=== PATIENT | female | born 1960 | race Caucasian/White ===

== ENCOUNTER → 2022-04-08 15:55 | Outpatient (CLI) | payer OTHER, SELFPAY ==
[2022-04-08 19:09] LABS: Basophils % 0.6 % (0.1-2.0); Eosinophils # 0.2 K/mm3 (0.0-0.4); Eosinophils % 2.3 % (0.1-12.0); Hematocrit 39.2 % (37.0-47.0); Lymphocytes # 2.2 K/mm3 (0.7-4.5); Lymphocytes % 34.5 % (10-50); Mean Corpuscular HGB Conc 33.2 g/dL (31.8-35.4); Mean Corpuscular Hemoglobin 32.6 pg (27.0-31.2); Mean Corpuscular Volume 98.2 fl (81-99); Mean Platelet Volume 8.9 fl (7.4-10.4); Monocytes # 0.5 K/mm3 (0.1-1.0); Monocytes % 8.5 % (1.7-9.3); Neutrophils # 3.5 K/mm3 (1.8-7.8); Neutrophils % 54.1 % (37.0-80.0); Platelet Count 129 K/mm3 (142-424); Red Cell Distribution Width 13.4 % (11.5-17.5); White Blood Count 6.4 K/mm3 (4.8-10.8)
[2022-04-08 19:55] LABS: Microalbumin < 6.000 mg/L (0-16.7)
[2022-04-08 19:59] LABS: Creatinine,Urine Random 18 mg/dL (Not Estab.); Microalbumin/Creatinine Ratio 33.3
[2022-04-08 21:12] LABS: Alanine Aminotransferase 42 U/L (12-78); Albumin Level 4.6 g/dl (3.5-5.0); Albumin/Globulin Ratio 1.5 (1.1-1.8); Alkaline Phosphatase 277 U/L (38-126); Anion Gap 13.9 mEq/L (5-15); Aspartate Amino Transferase 51 U/L (14-36); Bilirubin,Total 0.7 mg/dl (0.2-1.3); Blood Urea Nitrogen 30 mg/dl (7-17); Calcium 10.6 mg/dl (8.4-10.2); Carbon Dioxide 27 mmol/L (22.0-30.0); Chloride 103 mmol/L (98-107); Chol/HDL Ratio 2.9 (1-3.5); Cholesterol 206 mg/dl (140-200); Estimated Glomerular Filt Rate 56 ml/min (>60); GFR (African American) 68 ML/MIN (>60); Globulin 3.1 g/dL (1.3-3.2); Glucose 108 mg/dl (74-100); HDL Cholesterol 71 mg/dl (40-60); Potassium 3.9 mmoL/L (3.5-5.1); Sodium 140 mmol/L (136-145); Total Protein,Serum 7.7 g/dl (6.3-8.2); Triglycerides 180 mg/dl (30-150); VLDL Cholesterol 36 mg/dL (0-40)
[2022-04-08 21:23] LABS: Direct LDL Cholesterol 84.18 mg/dL (100-129)
[2022-04-08 21:43] LABS: Thyroid Stimulating Hormone 0.98 uIU/mL (0.465-4.68)
== END ==
PROVIDERS: PCP Family Medicine; Visit Provider Family Medicine
DX: E11.9 Type 2 diabetes mellitus without complications (principal); E78.5 Hyperlipidemia, unspecified; I10 Essential (primary) hypertension; Z79.84 Long term (current) use of oral hypoglycemic drugs
CPT/HCPCS: 80053; 80061; 82043; 82570; 84443; 85025

== ENCOUNTER → 2022-07-17 19:04 | Outpatient (CLI) | payer OTHER, SELFPAY ==
[2022-07-17 19:41] LABS: Alanine Aminotransferase 53 U/L (12-78); Albumin Level 4.4 g/dl (3.5-5.0); Albumin/Globulin Ratio 1.5 (1.1-1.8); Alkaline Phosphatase 215 U/L (38-126); Anion Gap 12.3 mEq/L (5-15); Aspartate Amino Transferase 66 U/L (14-36); Bilirubin,Total 0.9 mg/dl (0.2-1.3); Blood Urea Nitrogen 24 mg/dl (7-17); Calcium 9.4 mg/dl (8.4-10.2); Carbon Dioxide 23 mmol/L (22.0-30.0); Chloride 107 mmol/L (98-107); Chol/HDL Ratio 2.5 (1-3.5); Cholesterol 178 mg/dl (140-200); Estimated Glomerular Filt Rate 64 ml/min (>60); GFR (African American) 77 ML/MIN (>60); Globulin 2.9 g/dL (1.3-3.2); Glucose 182 mg/dl (74-100); HDL Cholesterol 71 mg/dl (40-60); Potassium 4.3 mmoL/L (3.5-5.1); Sodium 138 mmol/L (136-145); Total Protein,Serum 7.3 g/dl (6.3-8.2); Triglycerides 119 mg/dl (30-150); VLDL Cholesterol 24 mg/dL (0-40)
[2022-07-17 19:53] LABS: Direct LDL Cholesterol 81.52 mg/dL (100-129)
[2022-07-17 20:12] LABS: Thyroid Stimulating Hormone 1.16 uIU/mL (0.465-4.68)
[2022-07-17 21:41] LABS: Hemoglobin A1C 6.8 % (4.0-6.0)
== END ==
PROVIDERS: PCP Family Medicine; Visit Provider Family Medicine
DX: E11.9 Type 2 diabetes mellitus without complications (principal); E78.5 Hyperlipidemia, unspecified; I10 Essential (primary) hypertension; Z79.84 Long term (current) use of oral hypoglycemic drugs
CPT/HCPCS: 80053; 80061; 83036; 84443

== ENCOUNTER → 2022-10-07 16:00 | Outpatient (CLI) | payer OTHER, SELFPAY ==
[2022-10-07 19:41] LABS: Alanine Aminotransferase 36 U/L (12-78); Albumin Level 4.2 g/dl (3.5-5.0); Albumin/Globulin Ratio 1.3 (1.1-1.8); Alkaline Phosphatase 192 U/L (38-126); Anion Gap 18.1 mEq/L (5-15); Aspartate Amino Transferase 51 U/L (14-36); Bilirubin,Total 0.7 mg/dl (0.2-1.3); Blood Urea Nitrogen 25 mg/dl (7-17); Calcium 9.7 mg/dl (8.4-10.2); Carbon Dioxide 23 mmol/L (22.0-30.0); Chloride 104 mmol/L (98-107); Estimated Glomerular Filt Rate 73 ml/min (>60); GFR (African American) 88 ML/MIN (>60); Globulin 3.2 g/dL (1.3-3.2); Glucose 118 mg/dl (74-100); Potassium 4.1 mmoL/L (3.5-5.1); Sodium 141 mmol/L (136-145); Total Protein,Serum 7.4 g/dl (6.3-8.2)
== END ==
PROVIDERS: PCP Family Medicine; Visit Provider Family Medicine
DX: E11.9 Type 2 diabetes mellitus without complications (principal); I10 Essential (primary) hypertension; R74.8 Abnormal levels of other serum enzymes; Z79.84 Long term (current) use of oral hypoglycemic drugs
CPT/HCPCS: 80053

== ENCOUNTER → 2023-04-07 23:21 | Outpatient (CLI) | payer OTHER, SELFPAY ==
[2023-04-07 18:12] LABS: Amphetamine/Metha Screen,Urine Negative ng/ml (<1000); Barbiturates Screen,Urine Negative ng/ml (<200)
[2023-04-07 18:13] LABS: Benzodiazepines Screen,Urine Negative ng/ml (<200)
[2023-04-07 18:14] LABS: Cocaine Screen,Urine Negative ng/ml (<300); Methadone Screen,Urine Negative ng/ml (<300)
[2023-04-07 18:15] LABS: Cannabinoid Screen,Urine Negative ng/ml (<50); Opiate Screen,Urine Negative ng/ml (<300)
[2023-04-07 18:24] LABS: Phencyclidine Screen,Urine Negative ng/ml (<25)
== END ==
PROVIDERS: PCP Family Medicine; Visit Provider Family Medicine
DX: Z79.899 Other long term (current) drug therapy (principal)
CPT/HCPCS: 80305

== ENCOUNTER 2023-07-19 19:28 | Outpatient (CLI) | payer BC, SELFPAY ==
[2023-07-19 19:10] LABS: Basophils % 0.7 % (0.1-2.0); Eosinophils # 0.1 K/mm3 (0.0-0.4); Eosinophils % 1.5 % (0.1-12.0); Hemoglobin 13.3 g/dL (12.2-16.2); Lymphocytes # 1.2 K/mm3 (0.7-4.5); Lymphocytes % 23.3 % (10-50); Mean Corpuscular HGB Conc 31.7 g/dL (31.8-35.4); Mean Corpuscular Hemoglobin 31.4 pg (27.0-31.2); Mean Platelet Volume 10.3 fl (7.4-10.4); Monocytes # 0.4 K/mm3 (0.1-1.0); Monocytes % 6.8 % (1.7-9.3); Neutrophils # 3.6 K/mm3 (1.8-7.8); Neutrophils % 67.8 % (37.0-80.0); Platelet Count 128 K/mm3 (142-424); Red Blood Count 4.24 M/mm3 (4.20-5.40); Red Cell Distribution Width 14.4 % (11.5-17.5); White Blood Count 5.3 K/mm3 (4.8-10.8)
[2023-07-19 19:53] LABS: Hemoglobin A1C 7.3 % (4.0-6.0)
[2023-07-19 21:25] LABS: Chloride 110 mmol/L (98-107)
[2023-07-19 21:26] LABS: Potassium 4.8 mmoL/L (3.5-5.1); Sodium 141 mmol/L (136-145)
[2023-07-19 21:28] LABS: Alanine Aminotransferase 48 U/L (12-78); Alkaline Phosphatase 320 U/L (38-126); Anion Gap 13.8 mEq/L (5-15); Aspartate Amino Transferase 59 U/L (14-36); Bilirubin,Total 0.8 mg/dl (0.2-1.3); Blood Urea Nitrogen 26 mg/dl (7-17); Carbon Dioxide 22 mmol/L (22.0-30.0); Estimated Glomerular Filt Rate 56 ml/min (>60); GFR (African American) 68 ML/MIN (>60)
[2023-07-19 21:29] LABS: Albumin/Globulin Ratio 1.3 (1.1-1.8); Chol/HDL Ratio 3.9 (1-3.5); Cholesterol 192 mg/dl (140-200); Glucose 208 mg/dl (74-100); HDL Cholesterol 49 mg/dl (40-60); Triglycerides 182 mg/dl (30-150); VLDL Cholesterol 36 mg/dL (0-40)
[2023-07-19 21:40] LABS: Direct LDL Cholesterol 89.33 mg/dL (100-129)
== END 2023-07-19 23:59 ==
LOC: LAB.DROPOF 19:28
PROVIDERS: PCP Family Medicine; Visit Provider Family Medicine
DX: E11.9 Type 2 diabetes mellitus without complications (principal); E78.5 Hyperlipidemia, unspecified; Z79.84 Long term (current) use of oral hypoglycemic drugs
CPT/HCPCS: 80053; 80061; 83036; 85025

== ENCOUNTER 2024-01-17 16:50 | Outpatient (CLI) | payer BC, SELFPAY ==
[2024-01-17 18:52] LABS: Creatinine,Urine Random 50 mg/dL (Not Estab.); Microalbumin < 6.000 mg/L (0-16.7)
== END 2024-01-17 23:59 | disposition home or self-care (01) ==
LOC: LAB.DROPOF 01-18 11:00
PROVIDERS: PCP Family Medicine; Visit Provider Family Medicine
DX: E11.9 Type 2 diabetes mellitus without complications (principal); Z79.84 Long term (current) use of oral hypoglycemic drugs
CPT/HCPCS: 82043; 82570

== ENCOUNTER 2024-12-26 10:00 | Outpatient (CLI) | payer BC, SELFPAY ==
[2024-12-26 15:19] LABS: Hematocrit 32.3 % (37.0-47.0); Hemoglobin 10.0 g/dL (12.2-16.2); Immature Granulocytes % 0.6 %; Mean Corpuscular HGB Conc 31.0 g/dL (31.8-35.4); Mean Corpuscular Hemoglobin 27.4 pg (27.0-31.2); Mean Corpuscular Volume 88.5 fl (81-99); Nucleated Red Blood Cells % 0 %; Platelet Count 166 K/mm3 (142-424); Red Blood Count 3.65 M/mm3 (4.20-5.40); Red Cell Distribution Width-SD 49.8 fL; White Blood Count 4.8 K/mm3 (4.8-10.8)
[2024-12-26 16:13] LABS: Alanine Aminotransferase 9 U/L (12-78); Albumin Level 3.4 g/dl (3.5-5.0); Albumin/Globulin Ratio 1.1 (1.1-1.8); Alkaline Phosphatase 311 U/L (38-126); Anion Gap 12.5 mEq/L (5-15); Aspartate Amino Transferase 50 U/L (14-36); Bilirubin,Total 1.2 mg/dl (0.2-1.3); Blood Urea Nitrogen 26 mg/dl (7-17); Calcium 8.6 mg/dl (8.4-10.2); Carbon Dioxide 30 mmol/L (22.0-30.0); Chloride 94 mmol/L (98-107); Creatinine,Serum 1.10 mg/dl (0.52-1.04); Estimated Glomerular Filt Rate 50 ml/min (>60); GFR (African American) 61 ML/MIN (>60); Globulin 3.1 g/dL (1.3-3.2); Glucose 136 mg/dl (74-100); Potassium 3.5 mmoL/L (3.5-5.1); Sodium 133 mmol/L (136-145); Total Protein,Serum 6.5 g/dl (6.3-8.2)
--- OUTSIDE RECORDS SUMMARY | 2025-02-17 20:00 | XMS_ITS | Clinical Summary ---
Author Organization [facility] ([facility]) Address [address] [address] Phone Care Team Providers Care Debt Counselor Name Role Phone VADIM ARRINGTON, KEVIN Unavailable Unavailable BRENDA KELLOGG, ERIC Unavailable Unavailable Payers Payer Name Policy Type Policy Number Effective Date Expira tion Date [facility] [id number] ANTH BCBS FFS [id number] Problems Condition Name Condition Details Condition Category Status Onset Date Resolution Date Last Treatment Date Treating Clinician Comments SEPSIS, UNSPECIFIED ORGANISM Active 12-20 00:00: 00 Allergies, Adverse Reactions, Alerts Allergy Name Allergy Type Status Severity Reaction(s) Onset Date Inactive Date Treating Clinician Comments NKA Propensity to adverse reactions Active 2024-12 14:16:3 5 Vital Signs Vital Name Observation Time Observation Value Commen ts Temperature 2024-12-21 14:25:00.000 97.3 [degF] BMI (%) 2024-12-21 14:25:00.000 25 kg/m2 Height 2024-12-21 14:25:00.000 67 [in_us] Pulse 2024-12-21 14:25:00.000 89 /min O2 Saturation (%) 2024-12-21 14:25:00.000 95 % Respirations 2024-12-21 14:25:00.000 15 /min Weight (lbs) 2024-12-21 14:25:00.000 165 [lb_av] Systolic Blood Pressure 2024-12-21 14:25:00.000 108 mm [Hg] Diastolic Blood Pressure 2024-12-21 14:25:00.000 54 mm [Hg] Plan of Care Planned Activity Planned Date Details Comments Future Scheduled Test SKILLED NU RSE PRN VISIT ORDER: 3 PRN VISITS MAY BE PERFORMED DURING THIS CERTIFICATION PERIOD FOR THE FOLLOWING REASON(S): SHORTNESS OF BREATH, PAIN, FALLS, BLOOD PRESSURE ISSUES, INCREASED SWELLING/EDEMA, PICC LINE CARE OR TROUBLESHOOTING. SKILLED NURSE TO EVALUATE AND DEVELOP PLAN OF CARE TO BE SIGNED BY THE PHYSICIAN. SKILLED NURSE TO ASSESS/EVALUATE ANY CONDITIONS THAT PRESENT THEMSELVES AND THAT WILL IMPACT THE PLAN OF CARE DURING THE COURSE OF THE EPISODE TO IDENTIFY CHANGES AND INTERVENE TO MINIMIZE COMPLICATIONS. TEACH AND MONITOR PATIENT/CAREGIVER ABILITY TO SAFELY ADMINISTER MEDICATIONS. PHONE TOUCHPOINTS CAN BE PERFORMED NEEDED TO SUPPLEMENT THE PLAN OF CARE. [code = SKILLED NURSE PRN VISIT ORDER: 3 PRN VISITS MAY BE PERFORMED DURING THIS CERTIFICATION PERIOD FOR THE FOLLOWING REASON(S): SHORTNESS OF BREATH, PAIN, FALLS, BLOOD PRESSURE ISSUES, INCREASED SWELLING/EDEMA, PICC LINE CARE OR TROUBLESHOOTING. SKILLED NURSE TO EVALUATE AND DEVELOP PLAN OF CARE TO BE SIGNED BY THE PHYSICIAN. SKILLED NURSE TO ASSESS/EVALUATE ANY CONDITIONS THAT PRESENT THEMSELVES AND THAT WILL IMPACT THE PLAN OF CARE DURING THE COURSE OF THE EPISODE TO IDENTIFY CHANGES AND INTERVENE TO MINIMIZE COMPLICATIONS. TEACH AND MONITOR PATIENT/CAREGIVER ABILITY TO SAFELY ADMINISTER MEDICATIONS. PHONE TOUCHPOINTS CAN BE PERFORMED NEEDED TO SUPPLEMENT THE PLAN OF CARE.] Future Scheduled Test PSYCHOSOCI AL / COGNITIVE ASSESSMENT INDICATES NO NEED FOR SOCIAL, FINANCIAL, OR TRANSPORTATION SUPPORT OR FOR ADDITIONAL CARE PROVIDERS/DISCIPLINES OR REFERRALS TO OUTSIDE ENTITIES. [code = PSYCHOSOCIAL / COGNITIVE ASSESSMENT INDICATES NO NEED FOR SOCIAL, FINANCIAL, OR TRANSPORTATION SUPPORT OR FOR ADDITIONAL CARE PROVIDERS/DISCIPLINES OR REFERRALS TO OUTSIDE ENTITIES.] Future Scheduled Test CLINICIAN TO EDUCATE PATIENT / CAREGIVER IN FALL PREVENTION AND PROVIDE INTERVENTIONS TO REDUCE FALL RISK AND ENHANCE HOME SAFETY [code = CLINICIAN TO EDUCATE PATIENT / CAREGIVER IN FALL PREVENTION AND PROVIDE INTERVENTIONS TO REDUCE FALL RISK AND ENHANCE HOME SAFETY] Future Scheduled Test PATIENT/CA REGIVER WILL BE KNOWLEDGEABLE OF DISCHARGE PLANS AND WILL DEMONSTRATE/PROVIDE EDUCATION AND RESOURCES NEEDED TO MAINTAIN HEALTH. [code = PATIENT/CAREGIVER WILL BE KNOWLEDGEABLE OF DISCHARGE PLANS AND WILL DEMONSTRATE/PROVIDE EDUCATION AND RESOURCES NEEDED TO MAINTAIN HEALTH.] Future Scheduled Test AGENCY GISSELLE L DISCHARGE PATIENT TO PHYSICIAN/HEALTH CARE PROVIDER AND MAY ACCEPT ORDERS FROM THE FOLLOWING PHYSICIANS: [code = AGENCY WILL DISCHARGE PATIENT TO PHYSICIAN/HEALTH CARE PROVIDER AND MAY ACCEPT ORDERS FROM THE FOLLOWING PHYSICIANS: ] Future Scheduled Test SKILLED NU RSE TO OBSERVE AND ASSESS CARDIOVASCULAR SYSTEM TO IDENTIFY CHANGES AND INTERVENE TO MINIMIZE COMPLICATIONS AND PROMOTE SELF CARE MANAGEMENT. SKILLED NURSE TO PROVIDE SKILLED TEACHING RELATED TO PATHOPHYSIOLOGY, DISEASE MANAGEMENT, SAFE MEDICATION ADMINISTRATION, WEIGHT/EDEMA MANAGEMENT, PERMITTED ACTIVITIES, S/SX OF EXACERBATION, AND S/SX TO NOTIFY AGENCY, PHYSICIAN OR 911 RELATED TO THE DIAGNOSIS OF CHF [code = SKILLED NURSE TO OBSERVE AND ASSESS CARDIOVASCULAR SYSTEM TO IDENTIFY CHANGES AND INTERVENE TO MINIMIZE COMPLICATIONS AND PROMOTE SELF CARE MANAGEMENT. SKILLED NURSE TO PROVIDE SKILLED TEACHING RELATED TO PATHOPHYSIOLOGY, DISEASE MANAGEMENT, SAFE MEDICATION ADMINISTRATION, WEIGHT/EDEMA MANAGEMENT, PERMITTED ACTIVITIES, S/SX OF EXACERBATION, AND S/SX TO NOTIFY AGENCY, PHYSICIAN OR 911 RELATED TO THE DIAGNOSIS OF CHF] Future Scheduled Test SKILLED NU RSE TO OBSERVE AND ASSESS RESPIRATORY SYSTEM TO IDENTIFY CHANGES AND INTERVENE TO MINIMIZE COMPLICATIONS. SKILLED NURSE TO PROVIDE SKILLED TEACHING RELATED TO ALTERED RESPIRATORY STATUS INCLUDING PATHOPHYSIOLOGY, NUTRITION, MEDICATION REGIMEN, AND PERMITTED ACTIVITIES. [code = SKILLED NURSE TO OBSERVE AND ASSESS RESPIRATORY SYSTEM TO IDENTIFY CHANGES AND INTERVENE TO MINIMIZE COMPLICATIONS. SKILLED NURSE TO PROVIDE SKILLED TEACHING RELATED TO ALTERED RESPIRATORY STATUS INCLUDING PATHOPHYSIOLOGY, NUTRITION, MEDICATION REGIMEN, AND PERMITTED ACTIVITIES.] Future Scheduled Test SKILLED NU RSE FOR INSTRUCTIONS / REINFORCEMENT OF / MANAGEMENT OF DIABETES TO INCLUDE DIET, SKIN CARE, MEDICATION MANAGEMENT, BLOOD GLUCOSE TESTING AND DIABETIC FOOT CARE. PATIENT CHECKS BLOOD SUGAR VIA PERSONAL GLUCOSE METER VIA FINGER STICK DAILY INDEPENDENTLY [code = SKILLED NURSE FOR INSTRUCTIONS / REINFORCEMENT OF / MANAGEMENT OF DIABETES TO INCLUDE DIET, SKIN CARE, MEDICATION MANAGEMENT, BLOOD GLUCOSE TESTING AND DIABETIC FOOT CARE. PATIENT CHECKS BLOOD SUGAR VIA PERSONAL GLUCOSE METER VIA FINGER STICK DAILY INDEPENDENTLY] Future Scheduled Test SKILLED NU RSE FOR OBSERVATION/ASSESSMENT OF PAIN, EFFECTIVENESS OF PAIN MANAGEMENT INCLUDING MEDICATION REVIEW AND PHARMACOLOGICAL AND NONPHARMACOLOGICAL TREATMENTS AND SKILLED TEACHING RELATED TO PAIN MANAGEMENT. SKILLED NURSE TO INTERVENE WITH INCREASED PAIN LEVEL TO MINIMIZE COMPLICATIONS. [code = SKILLED NURSE FOR OBSERVATION/ASSESSMENT OF PAIN, EFFECTIVENESS OF PAIN MANAGEMENT INCLUDING MEDICATION REVIEW AND PHARMACOLOGICAL AND NONPHARMACOLOGICAL TREATMENTS AND SKILLED TEACHING RELATED TO PAIN MANAGEMENT. SKILLED NURSE TO INTERVENE WITH INCREASED PAIN LEVEL TO MINIMIZE COMPLICATIONS.] Future Scheduled Test SKILLED NU RSE TO USE STERILE TECHNIQUE TO PERFORM PICC CARE. INFUSE CEFAZOLIN 2GM VIA IV PUSH 20ML SYRINGE EVERY 8 HOURS UNTIL 12.30.2024 . FLUSH WITH 10 ML OF 0.9% NORMAL SALINE FOLLOWED BY 5ML OF 10 UNITS/ML HEPARIN. MAY FLUSH WITH ADDITIONAL 10ML OF 0.9% NORMAL SALINE TO ENSURE LINE PATENCY OR BEFORE LAB DRAW. SKILLED NURSE MAY INSTRUCT PATIENT/CAREGIVER TO PERFORM INFUSION THERAPY. PERFORM DRESSING CHANGES TO SITE WEEKLY AND PRN FOR LOOSE OR SOILED DRESSING. CHANGE INJECTION CAP AND EXTENSION TUBING ONCE A WEEK AND WITH EACH LAB DRAW AND PRN FOR CONTAMINATION OR MALFUNCTION. CLEANSE SITE WITH CHLORHEXIDINE APPLY SECUREMENT DEVICE AND BIOPATCH PRN FOR REDNESS OR NEUTROPENIA. COVER WITH TRANSPARENT FILM DRESSING. [code = SKILLED NURSE TO USE STERILE TECHNIQUE TO PERFORM PICC CARE. INFUSE CEFAZOLIN 2GM VIA IV PUSH 20ML SYRINGE EVERY 8 HOURS UNTIL 12.30.2024 . FLUSH WITH 10 ML OF 0.9% NORMAL SALINE FOLLOWED BY 5ML OF 10 UNITS/ML HEPARIN. MAY FLUSH WITH ADDITIONAL 10ML OF 0.9% NORMAL SALINE TO ENSURE LINE PATENCY OR BEFORE LAB DRAW. SKILLED NURSE MAY INSTRUCT PATIENT/CAREGIVER TO PERFORM INFUSION THERAPY. PERFORM DRESSING CHANGES TO SITE WEEKLY AND PRN FOR LOOSE OR SOILED DRESSING. CHANGE INJECTION CAP AND EXTENSION TUBING ONCE A WEEK AND WITH EACH LAB DRAW AND PRN FOR CONTAMINATION OR MALFUNCTION. CLEANSE SITE WITH CHLORHEXIDINE APPLY SECUREMENT DEVICE AND BIOPATCH PRN FOR REDNESS OR NEUTROPENIA. COVER WITH TRANSPARENT FILM DRESSING.] Future Scheduled Test SKILLED NU RSE FOR OBSERVATION/ASSESSMENT OF IV ACCESS SITE, RESPONSE TO MEDICATION AND SKILLED TEACHING REGARDING INFUSION PROCEDURE, CARE OF INFUSION LINE AND SITE CARE, CARE AND USE OF INFUSION EQUIPMENT AND SIGNS/SYMPTOMS OF COMPLICATIONS OF IV THERAPY. SN FOR DISEASE MANAGEMENT EDUCATION RELATED TO SEPSIS [code = SKILLED NURSE FOR OBSERVATION/ASSESSMENT OF IV ACCESS SITE, RESPONSE TO MEDICATION AND SKILLED TEACHING REGARDING INFUSION PROCEDURE, CARE OF INFUSION LINE AND SITE CARE, CARE AND USE OF INFUSION EQUIPMENT AND SIGNS/SYMPTOMS OF COMPLICATIONS OF IV THERAPY. SN FOR DISEASE MANAGEMENT EDUCATION RELATED TO SEPSIS] Future Scheduled Test SKILLED NU RSE TO REMOVE PICC LINE 01.01.2025 [code = SKILLED NURSE TO REMOVE PICC LINE 01.01.2025] Future Scheduled Test SKILLED NU RSE TO FOCUS ON IDENTIFIED NEED FOR HIGH RISK MEDICATION INTERVENTION. [code = SKILLED NURSE TO FOCUS ON IDENTIFIED NEED FOR HIGH RISK MEDICATION INTERVENTION.] Progress Notes * <paragraph>[Visit Date: 2024-12-21 by ERIC GUTIERREZ RN]:</paragraph><paragraph>SOC THIS IS A 64 YEAR OLD FEMALE WHOM WAS ADMITTED AT [facility] FOR SEPSIS FROM 12.14.2024 TO 12.21.2024. PATIENT CAME HOME WITH E SINGLE LUMEN PICC. CEFAZOLIN 2GM EVERY 8 HOURS TO BE ADMINISTERED UNTIL 12.30.2024. 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 PATIENT HAS ROLLWALKER IF NEEDED WHEN WALKING FOR LONGER DISTANCES DUE TO DECREASED ENDURANCE POST HOSPITALIZATION. PATIENT HAS BP BUFF, SCALE, IV INFUSION EQUPMENT. PATIENT CURRENLTLY SLEEPSIN RECLINER HOWEVER DOES HAVE BED. PATIENT CURRENTLY PREFERS RECLINER TO SLEEP IN. PATIENT MAINLY INDEPENDENT WITH ADLS. SIG OTHER IS CURRENTLY DRIVING PATIENT TO MD APPOINTMENTS. PATIENT PRIOR TO HOS PITAL DID DRIVE AND WILL DRIVE WHEN PATIENT FEELS MORE COMFORTABLE PER PATIENT. PATIENT ATTEMPTS TOFOLLOW LOW SODIUM DIET BY NOT ADDING SALT HOWEVER DRINKS ATLEAST 140OZ DAILY AND TEA. PATIENT CHECKS ON BLOOD SUGAR VIA FINGERSTICK DAILY IN AM. PATIENT CURRENTLY IS SPONGE BATHING DUE TO PICC LINE HOWEVER NORMALLY SHOWEVERS ON OWN. PATIENT TAKES MEDICATIONS FROM PILL BOTTLES AND DOES NOT USE MEDISET. SN DID MED REC USING DISCHARGE HOSPITAL INSTRUCTTIONS. MULTIPLE MEDICATIONS WERE DISCONTINUED(ATLEAST UNTIL MD FOLLOW UP APPOINTMENT) AND WERE HIGHLIGHTED ON DISCHARGE FORM HOWEVER PATIENT AND SIGOTHER WERE NOT AWARE. PATIENT STATED PLANS FOR DISCHARGE WERE DELAYED DUE TO IV ANTIBTIOCS ARRIVINGTO HOME AND THEY LEFT EARLY AM AND DID NOT HEAR NURSE ABOUT D/C OF MEDICATIONS. PATIENT DIID TAKE PRESCRIVED MEDICATIONS WHEN ARRIVED AT HOME IN AM. SN WENT OVER DISCONTINUED MEDICATIONS. MEDICATIONSINCLUDED WERE METOPROLOL, SPIRONOLACTONE, LASIX, ENTRESTO AND PLAVIX. SN LOOKED ON EPIC AND DUE TO SOFT BPS PATIENT METOPROLOL AND ENTRESTO STOPPED CURRENTLY. PATIENT WAS PRESCRIBED MIDODRINE. SN WENT OVER MIDIDRINE AND PURSPOSE, SIDE EFFECTS WITH PATIENT. PATIENT AND SIG OTHER UNDSTOOD AFTER SN WENT OVER D/C MEDS TO NOT TAKE. PATIENT DIRUECTIC CHANGED TO TORSEMIDE. PLOF: INDEPENDENT WITH ALL ADLS CURRENT SITUATION: AOX4, PLEASANT AND AGGREABLE TO DURING VISIT. VSS, LSCTA, PITTING BLE HOWEVER IMPROVING PER PATIENT SINCE HOSPITALIZATION. SN WENT OVER CARDIO HEART FAILURE PACKET PATIENT NOT KNOWLEDGEABLE ON HF WELL DIET, S/S AND S/S OF EXERCERBATIONS AND WHEN TO CALL US OR MD. PATIENT STATED SHE ATTEMPT TO FOLLOW CARB CONSISTANT DIET. BLOOD SUGARS ARE RANGING LOW 100OS IN AM. NO ISSUES WITH URINATION AND BSX4. PATIENT DENIES PAIN. SN WENT OVER USING TEACHBACK METHOD ON SASH TECHNIQUE WITH PATIENT AND SIG OTHER. PATIENT HAS EXTENSION TUBE ON RUE SINGLE LUMEN PICC. PICC LINE PATIENT, FLUSHES WELL WITH GOOD BLOOD RETURN. PATIENT STATED THEY RECIEVED GOOD TEACHING PRIOR TO DISCHARGE ON HOW TO ADMINISTER PUSH IV SYRINGE EVERY 8 HOURS. PATIENT PREFORMED WELL AT TIME FOR ADMINISTRATION. PATIENT HAS NO LAB WORK ORDERED. CHELLEN STATED PLANS TO RETURN TO WORK AFTER LABOR DAY. WEEKENED DEC 30 PATIENT HAS FAMILY REUNION SHE IS ATTENDING AND WOULD LIKE PICC LINE PULL AND DISCHARGE ON LABOR DAY AM THEY MAY COOK OUT WITH FMAILY LATER IN THE DAY WELL. SN WENT OVER VISIT FREQUENCY, CALL US FIRST PROTOCOL, EOS, EMERGENCY AND PREPARDNESS PLAN. FOCUS OF CARE: SEPSIS, PICC LINE MAINTAINANCE AND EDUCATION ON DISEASE PROCESS AND MANAGEMENT. CHF, DM PLAN FOR NEXT VISIT: SN TO PREFORM ASSESSMENT, CHANGE PICC LINE DRESSING, EDUCATE ON DISEASE PROCESS AND MANAGEMENT MD TO NOTIFY:</paragraph> Encounters Start Date/Time End Date/Time Encounter Type Admission Type Attending Clinicians Care Facility Care Department Encounter ID [id number] 00:00:00 2025-02-18 00:00:00 Unknown NEW ADMISSION ERIC GUTIERREZ [facility] [id number]
== END 2024-12-26 23:59 | disposition home or self-care (01) ==
LOC: LAB.DROPOF 12-27 13:15
PROVIDERS: PCP Nurse Practitioner; Visit Provider Nurse Practitioner
DX: A41.9 Sepsis, unspecified organism (principal)
CPT/HCPCS: 80053; 85025